=== PATIENT | female | born 1990 | race Caucasian/White ===

== ENCOUNTER 2020-03-31 18:07 | Emergency (ER) | payer MEDICAID ==
[2020-03-31] MEDS ORDERED: IBUPROFEN 600 MG TABLET PO ONE (18:35)
--- NOTE | 2020-03-31 19:02 | RADIOLOGY REPORT (SQ) ---
EXAM DESCRIPTION: ANKLE LEFT COMPLETE IMAGES COMPLETED DATE/TIME: 03/31/2020 3:50 pm REASON FOR STUDY: twisted ankle COMPARISON: None. NUMBER OF VIEWS: Three views. TECHNIQUE: AP, lateral, and oblique radiographic images acquired of the left ankle. LIMITATIONS: None. FINDINGS: MINERALIZATION: Normal. BONES: No acute fracture or dislocation. No worrisome bone lesions. JOINTS: Joint spaces are intact. No significant effusion. SOFT TISSUES: There may be minimal soft tissue swelling about the ankle. OTHER: No other significant finding. IMPRESSION: Possible mild soft tissue swelling. No acute fracture identified. TECHNICAL DOCUMENTATION: JOB ID: [id number] 2010 [employer]- All Rights Reserved Reading location - IP/workstation name: [email or web address]
--- NOTE | 2020-03-31 19:18 | ER Document Report ---
HPI - HPI Time Seen by Provider: 03/31/20 18:26 Pain Level: 4 Notes: 21-year-old female presents emergency department for left ankle pain. Patient reports she rolled her ankle just prior to arrival. She has not taken any medication for her pain, she declines the need for any strong pain medication. She denies any history of trauma to this area previously. She reports she is unable to bear weight on her ankle. - ROS Systems Reviewed and Negative: Yes All other systems reviewed and negative - REPRODUCTIVE LMP: 03/25/20 Reproductive: DENIES: : - MUSCULOSKELETAL Musculoskeletal: REPORTS: Extremity pain - left ankle Past Medical History - General Information source: Patient - Social History Smoking Status: Never Smoker Chew tobacco use (# tins/day): No Frequency of alcohol use: None Drug Abuse: None Family History: Reviewed & Not Pertinent Psychiatric Medical History: Reports: Hx Depression Vertical Provider Document - CONSTITUTIONAL Notes: PHYSICAL EXAMINATION: GENERAL: Well-appearing, well-nourished and in no acute distress. HEAD: Atraumatic, normocephalic. EYES: Pupils equal round extraocular movements intact, conjunctiva are normal. ENT: Nares patent NECK: Normal range of motion LUNGS: No respiratory distress Musculoskeletal: Limited range of motion to left ankle, slight swelling noted on the lateral aspect, strong dorsalis pedis pulse, cap refill less than 3 seconds. Normal motor and sensation distally. NEUROLOGICAL: Normal speech. PSYCH: Normal mood, normal affect. SKIN: Warm, Dry, normal turgor, no rashes or lesions noted. Course - Vital Signs Vital signs: Temp Pulse Resp BP Pulse Ox 98.3 F 102 H 16 120/71 97 03/31/20 18:10 03/31/20 18:10 03/31/20 18:10 03/31/20 18:10 03/31/20 18:10 - Laboratory Results Critical Laboratory Results Reviewed: No Critical Results - Radiology Results Critical Radiology Results Reviewed: No Critical Results Procedures - Immobilization Left ankle Pre-Proc Neuro Vasc Exam: Normal Immobilizer type: Ankle stirrup, Crutches Performed by: PCT Post-Proc Neuro Vasc Exam: Normal Alignment checked and good: Yes Discharge - Discharge Clinical Impression: Ankle sprain Qualifiers: Encounter type: initial encounter Involved ligament of ankle: unspecified ligament Laterality: left Qualified Code(s): S93.402A - Sprain of unspecified ligament of left ankle, initial encounter Condition: Stable Disposition: HOME, SELF-CARE Instructions: Sprained Ankle ([facility]) Referrals: KRISTEN DAS JR, DO [ACTIVE PROVISIONAL STAFF] - Follow up as needed
[2020-03-31 19:49] VITALS: BP 110/64
== END 2020-03-31 19:48 | disposition home or self-care (01) ==
LOC: ER 18:07
DX: S93.402A Sprain of unspecified ligament of left ankle, initial encounter (principal); M25.572 Pain in left ankle and joints of left foot; X50.0XXA Overexertion from strenuous movement or load, initial encounter; Y93.89 Activity, other specified
CPT/HCPCS: 99283; 73610; J3490